=== PATIENT | female | born 1995 | race African-American/Black ===

== ENCOUNTER 2019-03-05 09:25 | Emergency (ER) | payer MEDICARE ==
[~2019-03-05] VITALS: Ht 160 cm; Wt 100.9 kg
[2019-03-05 09:35] VITALS: BP 138/80; Ht 160 cm; Wt 100.9 kg
[2019-03-05] MEDS ORDERED: MIRALAX17 GM PO (09:37)
[2019-03-05] MEDS ORDERED: SINGULAIR10 MG PO (09:38)
[2019-03-05] MEDS ORDERED: LINZESS145 MCG PO (09:38)
[2019-03-05] MEDS ORDERED: BUPROPION HCL75 MG PO (09:39)
[2019-03-05] MEDS ORDERED: ZYRTEC10 MG PO (09:39)
[2019-03-05 10:00] LABS: BASOPHILS 0.4 % (0-2); EOSINOPHILS 2.9 % (0-7); HEMATOCRIT 41.3 % (36.0-48.0); HEMOGLOBIN 14.3 g/dL (12-16); IMMATURE GRANULOCYTES 0.3 % (0-5); LYMPHOCYTES 37.7 % (15-50); MCH 29.9 pg (26.0-34.0); MCHC 34.6 g/dL (31.0-37.0); MCV 86.4 fL (80.0-100.0); MEAN PLATELET VOLUME 10.7 fL (7.4-10.4); MONOCYTES 7.8 % (2-11); NEUTROPHILS 50.9 % (40-80); PLATELET COUNT 280 10x3/uL (130-400); RBC 4.78 10x6/uL (4.00-5.40); RDW 13.5 % (11.5-14.5); WBC 6.9 10x3/uL (4.8-10.8)
[2019-03-05 10:14] LABS: ALBUMIN 3.4 g/dL (3.4-5.0); ALKALINE PHOSPHATASE 74 U/L (46-116); ALT (SGPT) 20 U/L (10-68); BILIRUBIN - TOTAL 0.21 mg/dL (0.2-1.3); CALC OSMOLALITY 274 mosm/kg (275-300); CALCIUM 8.9 mg/dL (8.5-10.1); CARBON DIOXIDE 27.1 mmol/L (21.0-32.0); CHLORIDE - SERUM 105 mmol/L (98-107); CREATININE - SERUM 0.9 mg/dL (0.6-1.3); GLUCOSE 92 mg/dL (74-106); POTASSIUM - SERUM 4.1 mmol/L (3.5-5.1); PROTEIN - SERUM 7.8 g/dL (6.4-8.2); SODIUM 139 mmol/L (136-145); UREA NITROGEN 5 mg/dL (7-18); eGFR NON AFRICAN AMERICAN 81 mL/min (90-120)
[2019-03-05 10:20] LABS: APPEARANCE CLEAR (CLEAR); BILIRUBIN NEGATIVE (NEGATIVE); COLOR YELLOW (YELLOW); GLUCOSE NEGATIVE (NEGATIVE); KETONE NEGATIVE (NEGATIVE); NITRITE NEGATIVE (NEGATIVE); PROTEIN NEGATIVE (NEGATIVE); SPECIFIC GRAVITY 1.015 (1.005-1.020); UROBILINOGEN NORMAL (NORMAL)
[2019-03-05 10:25] LABS: HCG URINE NEGATIVE (NEGATIVE)
[2019-03-05 10:26] LABS: AMYLASE - SERUM 72 U/L (25-115); LIPASE 64 U/L (73-393); TROPONIN-I < 0.017 ng/mL (0.000-0.060)
[2019-03-05] MEDS ORDERED: CHRONULAC30 ML PO (11:28)
== END 2019-03-05 11:50 | disposition home or self-care (01) ==
LOC: D.ER 09:25
PROVIDERS: Family Medicine
DX: K59.00 Constipation, unspecified (principal); R10.30 Lower abdominal pain, unspecified